=== PATIENT | female | born 1960 | race Caucasian/White ===

== ENCOUNTER 2023-08-08 00:21 | Day surgery (SDC) | payer OTHER, SELFPAY ==
[2023-07-27 13:04] VITALS: BMI 20.6
--- NOTE | 2023-07-27 13:09 | PC.NURSE ---
Report to the Outpatient Waiting Room, entrance under the green pavilion located off [facility], at time 1130 on date 08/08/23. Planned Procedure Time: 1330. Time changes happen often and if your time is changed the preop area will call you the afternoon before. - You and your visitor will be asked to self-screen and do not enter if you have any COVID symptoms. - A mask is optional within the hospital at this time. Patients may have clear liquids (water, carbonated beverages, clear teas, apple juice) until 3 hours prior to surgery with a maximum of 20 ounces. - No food from midnight until time of surgery Take the following medications with a SIP of water the morning of surgery: NONE DO NOT STOP ANY OF YOUR OTHER PRESCRIPTION MEDICATIONS PRIOR TO SURGERY ?EXCEPT THE FOLLOWING Medications to discontinue per physician: VITAMINS/SUPPLEMENTS Date to take last dose: 08/04/23 Please no make-up, nail sinhala, hairspray, perfume, deodorant, or body powder the day of surgery. No jewelry (including any body piercings) or valuables the day of surgery, leave them at home. Please take a shower or bath the night before, or the morning of, surgery with an antibacterial soap. Wear comfortable, loose fitting clothing. - Jewelry must be removed prior to entering the operating room. Rings and piercings that are not removed may be cut off. - The hospital will not accept responsibility for valuables. - Please leave all valuables, including medications, at home the day of surgery. If you are going home after surgery, a licensed stake driver must drive you home. - NO public transportation without another adult if you receive anesthesia. - We recommend that an adult stay with you for 24 hours following discharge. - We also recommend that you do not drive, make important decision, drink alcoholic beverages, or take any drugs that were not prescribed by your health care provider for at least 24 hours after your discharge time. Follow any additional instructions given to you from your surgeon. If you or anyone in your household have experienced Covid symptoms in the past week, please notify your surgeon or the nurse liaison at the phone number below for possible testing. Telephone instructions given to KENIA REARDON and asked if any additional questions and then verbalized understanding. Patient advised to call surgeon office or pre surgery nurse liaison [phone] if any additional questions.
[2023-08-08] VITALS (8 sets, daily range): BP systolic 95–153; BP diastolic 65–81; PULSE 68–93; RESP 12–16; TEMP 36.1–37; O2SAT 99–100
[2023-08-08 11:58] LABS: Urine Cotinine NEGATIVE
[2023-08-08] MEDS: LACTATED RINGERS 1,000 ML 30 ML IV CONT ×2 (12:15→16:00)
--- NOTE | 2023-08-08 12:31 | P.PNAN_ITS ---
Anes - Initial Pre Proc Eval Procedure: Operation Date: 08/08/23 13:30 Proposed Procedures p Bilateral Medial Thigh Lift with Liposuction - Shahram Bueno MD Date/Time: 08/08/23 12:31 Surgeon: Shahram Bueno MD Pre Op Diagnosis: skin laxity Patient Data Age: 63 Gender: F Height: 1.63 m Weight: 54.7 kg Last Vital Signs Temp 98.6 F 08/08/23 11:43 Pulse 83 08/08/23 11:43 Resp 16 08/08/23 11:43 BP 95/65 L 08/08/23 11:43 Pulse Ox 99 08/08/23 11:43 O2 Del Method Room Air 08/08/23 11:43 Allergies Allergy/AdvReac Type Severity Reaction Status Date / Time No Known Allergies Allergy Verified 07/27/23 13:01 Home Medications Medication Instructions Recorded Confirmed Type folic acid 800 mcg tablet 0.8 mg PO DAILY 07/27/23 07/27/23 History multivitamin 1 tablet PO DAILY 07/27/23 07/27/23 History omeprazole 20 mg capsule,delayed 20 mg PO DAILY 07/27/23 07/27/23 History release progesterone micronized 200 mg 200 mg PO DAILY 07/27/23 07/27/23 History capsule Laboratory Tests 08/08/23 11:43 Cotinine Negative Patient hx anesthesia problems: post op nausea/vomiting Family hx anesthesia problems: none Results Review: All pre-operative results and documents have been reviewed as part of the pre- operative evaluation. PMFSH Social History Social History Smoking status: Never smoker Alcohol intake: never Substance use: never Substance use type: does not use Living arrangements: with family Spiritual care concerns: No Anes - Eval Final PreProcedure Day of Procedure 08/08/23 12:31 Patient weight: normal Heart: regular rate and rhythm Lungs: clear to auscultation Airway: Mallampati scale class II Neurological: alert and oriented Last oral intake: >/= 8 hours ASA classification: III Emergent: no Anesthetic plan: proceed Anesthesia type and monitoring: general ETT and standard monitoring Results Review: All pre-operative results and documents have been reviewed as part of the pre- operative evaluation. Informed Consent: The patient's anesthetic plan and its attendant risks and benefits were discussed with the patient/family/POA. Questions were solicited and answers provided to the satisfaction of the patient/family/POA.
--- NOTE | 2023-08-08 13:13 | WPDHPUPDATE1 ---
History and Physical Update Update Date/Time: 08/08/23 13:13 History and Physical has been reviewed, including an updated exam of the patient. There are NO changes in the patient's condition. Risks, benefits, and alternatives have been discussed and questions answered. Patient agrees to proceed with procedure.
--- NOTE | 2023-08-08 13:13 | W.PM.PROC2 ---
Procedure Note - Detailed Date of Procedure 08/08/23 Pre-op Diagnosis skin laxity Post-op Diagnosis Same Procedure Performed Bilateral medial thigh lift Surgeon Shahram Bueno MD Anesthesia General Findings Lipoaspirate: 750 cc Description of Procedure Here for the above procedures. Preoperatively risks, benefits, alternatives were discussed again today in extensive detail. I want to be very realistic about the risks involved as well as expectations. Made sure answered all of their questions to satisfaction. They voiced a clear understanding. Consent obtained. Patient was marked in the preoperative holding area with their verification. Taken to the operating placed supine on the operating table. Anesthesia was provided by anesthesiology. Prepped and draped in a standard sterile fashion. Surgical time-out was taken. Stab incisions were made and I tumesced with a tumescent solution. Once adequate time for hemostasis suction lipectomy was with a 4 mm basket cannula based on S.A.F.E. technique. This was completed based on preoperative planning, intraoperative observation, and rolling pinch test which was in full agreement. I completely de-fatted the planned resection area and a strip avulsion technique was completed. Starting proximal to distal a 10 blade was used to excise the intervening skin and this was tacked as we proceed to ensure good closure. This was closed using a 2-0 Quill, 3-0 strata fix, running subcuticular 4-0 Monocryl, and tissue glue. Dressings were placed. Tolerated the procedure well. Taken to the PACU without difficulty. All instrument sponge counts were correct at the end of the case. Estimated Blood Loss 50 Drains No Packing No Pathology None sent Complications No immediate complications Condition Stable Disposition PACU
[2023-08-08] MEDS: ceFAZolin 2 GM/D5W 50 ML 2 GM/50 ML BAG IVPB (13:35)
[2023-08-08] MEDS: LACTATED RINGERS IRRIG 1,000 ML, LIDOCAINE HCL 1% LOCAL INJ 50 ML, EPINEPHrine HCL INJ ... INFILTRATE (13:35)
[2023-08-08] MEDS: TRANEXAMIC ACID 1,000MG/ISO100 1,000 MG/100 ML BAG 200 MG IVPB (13:46)
[2023-08-08] MEDS: oxyCODONE HCL (*CRX) 5 MG TAB IR PO (17:02)
[2023-08-08] MEDS: fentaNYL CITRATE INJ (*CRX) 100 MCG/2 ML VIAL 25 MCG IV PUSH (17:02)
== END 2023-08-08 17:34 | disposition home or self-care (01) ==
PROVIDERS: Visit Provider Surgery Plastic and Reconstructive Surgery
PROC: (CPT 15877; principal; 2023-08-08 13:30)
DX: Z41.1 Encounter for cosmetic surgery (principal); L57.4 Cutis laxa senilis; Z98.890 Other specified postprocedural states
CPT/HCPCS: 15832; 15879; 80307; A9270; J0171; J0690; J1100; J1170; J2250; J2371; J2405; J2704; J3010; J7120